=== PATIENT | female | born 1955 | race Caucasian/White ===

== ENCOUNTER → 2018-12-20 | Outpatient (CLI) | payer BC, OTHER ==
--- NOTE | 2018-12-20 09:24 | KCIC ---
EXAMINATION: Magnetic resonance imaging (MRI) of the lumbar spine without contrast 12/20/2018 8:45 AM HISTORY: Low back pain. History of neuropathy in both feet. Non-Hodgkin's lymphoma. Left-sided radiculopathy. TECHNIQUE: Multiplanar multi-weighted MRI of the lumbar spine was performed without intravenous contrast using the standard lumbar spine protocol. Contrast information: None administered. COMPARISON: None available. FINDINGS: The alignment of the lumbar spine is normal. Vertebral bodies demonstrate normal signal intensity on all sequences. There are no compression fractures. The conus medullaris terminates at the level of L2. The distal spinal cord signal intensity is normal. There is disc desiccation at all levels of the lumbar spine with annular fissure at L5-S1. Limited views of the abdomen and pelvis show no soft tissue abnormality. The aorta is normal. There is mild disc bulge at T10-T11 and T11-T12 without significant spinal canal stenosis. L1-L2: The disc is normal in configuration. There is no facet arthropathy. There is no neuroforaminal stenosis. There is no spinal canal stenosis. L2-L3: There is a left foraminal disc protrusion. There is no facet arthropathy. There is mild left neuroforaminal stenosis. There is no spinal canal stenosis. L3-L4: There is a left foraminal disc protrusion. There is mild facet arthropathy. There is mild left neuroforaminal stenosis. There is no spinal canal stenosis. L4-L5: The disc is normal in configuration. There is moderate to severe facet arthropathy. There is no neuroforaminal stenosis. There is no spinal canal stenosis. L5-S1: There is a left central disc protrusion. There is moderate facet arthropathy. There is no neuroforaminal stenosis. There is no spinal canal stenosis. IMPRESSION: Mild degenerative changes of the lumbar spine as described in detail above. Electronically signed by: Ana Paula Lubin MD (12/20/2018 9:21 AM) [id number]
== END | disposition home or self-care (01) ==
LOC: KCIC MRI 08:16
PROVIDERS: ATTEND Psychiatry & Neurology Neurology with Special Qualifications in Child Neurology
DX: M47.26 Other spondylosis with radiculopathy, lumbar region (principal); M48.061 Spinal stenosis, lumbar region without neurogenic claudication; M12.88 Other specific arthropathies, not elsewhere classified, other specified site; M51.27 Other intervertebral disc displacement, lumbosacral region; M51.24 Other intervertebral disc displacement, thoracic region; Z85.72 Personal history of non-Hodgkin lymphomas; G62.9 Polyneuropathy, unspecified
CPT/HCPCS: 72148